=== PATIENT | female | born 1990 | race Two or more races ===

== ENCOUNTER 2018-10-13 18:59 | Emergency (ER) | payer SELFPAY ==
--- NOTE | 2018-10-13 21:43 | ER Document Report ---
ED Medical Screen (RME) - General Chief Complaint: OB Problem (<20wks) Stated Complaint: BLEEDING WITH Time Seen by Provider: 10/13/18 21:40 Mode of Arrival: Ambulatory Information source: Patient Notes: PT PRESENTS 6 WEEKS VAG BLEEDING WITH CRAMP THAT STARTED TODAY I have greeted and performed a rapid initial assessment of this patient. A comprehensive ED assessment and evaluation of the patient, analysis of test results and completion of the medical decision making process will be conducted by additional ED providers. TRAVEL OUTSIDE OF THE [place] IN LAST 30 DAYS: No - Related Data Allergies/Adverse Reactions: No Known Allergies Allergy (Unverified 10/13/18 22:28) Physical Exam - Vital signs Vitals: Temp Pulse Resp BP Pulse Ox 98.7 F 71 16 137/71 H 100 10/13/18 19:29 10/13/18 19:29 10/13/18 19:29 10/13/18 19:29 10/13/18 19:29 Course - Vital Signs Vital signs: Temp Pulse Resp BP Pulse Ox 97.9 F 78 18 130/80 H 98 10/14/18 00:58 10/14/18 00:58 10/14/18 00:58 10/14/18 00:58 10/14/18 00:58 - Laboratory Result Diagrams: 10/13/18 22:18 10/13/18 22:18 Laboratory results interpreted by me: 10/13/18 10/13/18 22:18 22:18 Hct 35.7 L Beta HCG, Quant 402.62 H Doctor's Discharge - Discharge Condition: Good Disposition: HOME, SELF-CARE Additional Instructions: Please return to the ER on Tuesday so that we can recheck your hormone level. This will help us determine if you are having a miscarriage or if your is just very early. Please return to the ER immediately if you have worsening pain, increasing bleeding, or feel unwell in any way as heavy bleeding and severe pain can be a sign of an emergency and therefore you would need to be evaluated right away. Regrese a la tomás de emergencias el rich para que podamos volver a revisar ariza nivel de hormona del embarazo. [place] nos ayudar a determinar si est teniendo un aborto espontneo o si ariza embarazo es muy temprano. Regrese a la tomás de emergencias inmediatamente si tiene un dolor que empeora, aumenta el sangrado o se siente mal de alguna manera, ya que el sangrado intenso y el dolor intenso pueden ser un signo de gunner emergencia y, por lo tanto, debe ser evaluado de inmediato
[2018-10-13 22:27] LABS: ABSOLUTE EOSINOPHILS # (AUTO) 0.1 10^3/uL (0.0-0.6); ABSOLUTE LYMPHOCYTES (AUTO) 2.9 10^3/uL (0.5-4.7); ABSOLUTE MONOCYTES (AUTO) 0.7 10^3/uL (0.1-1.4); ABSOLUTE NEUT (AUTO) 6.5 10^3/uL (1.7-8.2); BASOPHILS % (AUTO) 0.2 % (0-2); HEMATOCRIT 35.7 % (36.0-47.0); HEMOGLOBIN 12.4 g/dL (12.0-15.5); LYMPHOCYTES % (AUTO) 28.1 % (13-45); MEAN CORPUSCULAR HEMOGLOBIN 31.3 pg (27.0-33.4); MEAN CORPUSCULAR HGB CONC 34.6 g/dL (32.0-36.0); MEAN CORPUSCULAR VOLUME 90 fl (80-97); MONOCYTES % (AUTO) 6.5 % (3-13); PLATELET COUNT 266 10^3/uL (150-450); RED BLOOD COUNT 3.96 10^6/uL (3.72-5.28); SEGMENTED NEUTROPHILS % (AUTO) 64.2 % (42-78); TOTAL CELLS COUNTED % (AUTO) 100 %; WHITE BLOOD COUNT 10.2 10^3/uL (4.0-10.5)
--- NOTE | 2018-10-13 23:56 | RADIOLOGY REPORT (SQ) ---
US PELVIS EXAM DATE: 10/13/2018 21:41 HISTORY: Early . Bleeding. COMPARISON: None. TECHNIQUE: Grayscale, color Doppler, and spectral Doppler ultrasound images of the pelvis were obtained. FINDINGS: The uterus is anteverted and measures 8.1 x 4.4 x 4.1 cm. The endometrium is 1.2 cm in thickness. No gestational sac is visualized. The cervix measures 3.3 cm and is closed. The right ovary measures 2.1 x 1.7 x 2.8 cm and contains a 1.2 cm paraovarian cyst. The left ovary measures 3.1 x 1.7 x 3.0 cm. Normal color Doppler blood flow is seen in both ovaries. No pelvic free fluid is visualized. IMPRESSION: No intrauterine gestational sac is seen. Correlate with beta hCG levels and consider short-term follow-up imaging.
--- NOTE | 2018-10-14 00:10 | ER Document Report ---
ED General - General Chief Complaint: OB Problem (<20wks) Stated Complaint: BLEEDING WITH Time Seen by Provider: 10/13/18 21:40 Mode of Arrival: Ambulatory Notes: Patient is a pleasant 28-year-old female. She is currently . This is her second . First went on to a normal vaginal delivery. Patient presents because she noticed some bleeding today. She says she is been passing dark blood with occasional what sounds to be small clots. No dysuria. No other complaints at this time. She has not yet seen an OB about her current . TRAVEL OUTSIDE OF THE [place] IN LAST 30 DAYS: No - Related Data Allergies/Adverse Reactions: No Known Allergies Allergy (Unverified 10/13/18 22:28) Past Medical History - General Information source: Patient Last Menstrual Period: unknown - Social History Smoking Status: Never Smoker Frequency of alcohol use: None Drug Abuse: None Family History: Reviewed & Not Pertinent Patient has suicidal ideation: No Patient has homicidal ideation: No Renal/ Medical History: Denies: Hx Peritoneal Dialysis Review of Systems - Review of Systems Notes: My Normal Review Basic REVIEW OF SYSTEMS: CONSTITUTIONAL : Denies fever, chills, or sweats. Denies recent illness. RESPIRATORY: Denies cough, cold, or chest congestion. Denies shortness of breath, difficulty breathing, or wheezing. GASTROINTESTINAL: Lower suprapubic cramping. GENITOURINARY: Denies difficulty urinating, painful urination, burning, frequency, or blood in urine. FEMALE GENITOURINARY: Currently . Some vaginal bleeding. MUSCULOSKELETAL: Denies neck or back pain or joint pain or swelling. SKIN: Denies rash or skin lesions. NEUROLOGICAL: Denies altered mental status or loss of consciousness. ALL OTHER SYSTEMS REVIEWED AND NEGATIVE. Physical Exam - Vital signs Vitals: Temp Pulse Resp BP Pulse Ox 98.7 F 71 16 137/71 H 100 10/13/18 19:29 10/13/18 19:29 10/13/18 19:29 10/13/18 19:29 10/13/18 19:29 - Notes Notes: General Appearance: Well nourished, alert, cooperative, no acute distress, no obvious discomfort. Well-appearing. Vitals: reviewed, See vital signs table. Head: no swelling or tenderness to the head Eyes: PERRL, EOMI, Conjuctiva clear Mouth: No decreasd moisture Lungs: No wheezing, No rales, No rhonci, No accessory muscle use, good air exchange bilaterally. Heart: Normal rate, Regular rythm, No murmur, no rub Abdomen: Normal BS, soft, No rigidity, mild suprapubic abdominal tenderness to palpation. Remainder of abdomen is nontender., No guarding, no rebound, no abdominal masses, no organomegaly Extremities: good pulses in all extremities, no edema. Skin: warm, dry, appropriate color, no rash Neuro: speech clear, oriented x 3, normal affect, responds appropriately to questions. Course - Re-evaluation Re-evalutation: 10/14/18 00:09 I spoke to the patient's at length. I used per diem interpreter [id number] through [employer] per diem interpreter services for all care of the patient including HPI, exam, and during the patient's results and follow-up plan. Interpretation again was through the patient's friend who spoke both [place] and [place]. Patient informed that she has 1 of 3 things going on. I informed her the most likely thing is that she either has a too early to see an ultrasound or she is having a miscar riage. I informed her that it is still possible that she could have a early ectopic not seen on ultrasound however I thought this is less likely being that she does not have significant pain to palpation of the abdomen, she has normal vital signs, and she looks well. I informed her that she needs to return to the ER on Tuesday so we can recheck her hCG level to see if it is trending downward or upward and to reevaluate her. I informed her that she needs to have a very low threshold to return to ER immediately if she has increasing pain or increasing bleeding. Patient agrees with plan will be discharged home. Dictation of this chart was performed using voice recognition software; therefore, there may be some unintended grammatical errors. 10/14/18 07:11 - Vital Signs Vital signs: Temp Pulse Resp BP Pulse Ox 97.9 F 78 18 130/80 H 98 10/14/18 00:58 10/14/18 00:58 10/14/18 00:58 10/14/18 00:58 10/14/18 00:58 - Laboratory Result Diagrams: 10/13/18 22:18 10/13/18 22:18 Laboratory results interpreted by me: 10/13/18 10/13/18 22:18 22:18 Hct 35.7 L Beta HCG, Quant 402.62 H Discharge - Discharge Clinical Impression: Vaginal bleeding in Condition: Good Disposition: HOME, SELF-CARE Additional Instructions: Please return to the ER on Tuesday so that we can recheck your hormone level. This will help us determine if you are having a miscarriage or if your is just very early. Please return to the ER immediately if you have worsening pain, increasing bleeding, or feel unwell in any way as heavy bleeding and severe pain can be a sign of an emergency and therefore you would need to be evaluated right away. Regrese a la tomás de emergencias el rich para que podamos volver a revisar ariza nivel de hormona del embarazo. [place] nos ayudar a determinar si est teniendo un aborto espontneo o si ariza embarazo es muy temprano. Regrese a la tomás de emergencias inmediatamente si tiene un dolor que empeora, aumenta el sangrado o se siente mal de alguna manera, ya que el sangrado intenso y el dolor intenso pueden ser un signo de gunner emergencia y, por lo tanto, debe ser evaluado de inmediato
[2018-10-14 00:59] VITALS: BP 130/80
== END 2018-10-14 00:59 | disposition home or self-care (01) ==
LOC: ER 18:59
DX: O46.91 Antepartum hemorrhage, unspecified, first trimester (principal); O26.891 Other specified pregnancy related conditions, first trimester; R10.30 Lower abdominal pain, unspecified; Z3A.01 Less than 8 weeks gestation of pregnancy
CPT/HCPCS: 36415; 76817; 84702; 85025; 86900; 86901; 93976; 99284